=== PATIENT | female | born 1930 | race Hispanic/Latino ===

== ENCOUNTER 2017-10-27 16:56 | Observation (INO) | payer MEDICARE ==
[2017-10-27] MEDS ORDERED: MORPHINE IV ONE (18:35)
--- NOTE | 2017-10-27 18:54 | Emergency Department Report ---
ED Lower Extremity HPI - General Chief Complaint: Extremity Problem,Nontraumatic Stated Complaint: RT LEG PAIN/NOT ABLE TO URINE Time Seen by Provider: 10/27/17 17:44 Source: EMS Mode of arrival: Stretcher Limitations: Physical Limitation - History of Present Illness Initial Comments: Hematological the patient injured her right lower extremity and was sent to rehabilitation. Patient was just recently discharged from rehabilitation and the son was trying to help her sit and she slid onto the floor. She is unsure whether her right leg got trapped under her. However is complaining of pain in the knee and in the right leg. This incident happened yesterday. Patient called Dr. Lacy and was advised to come into the ER to have a vascular evaluation the patient. Patient is also complaining of intermittent chest pain on the left side mild to moderate intensity and nonradiating with no aggravating or relieving factor. Complaint: knee injury, leg injury -: Gradual Injury: Leg: Right, Knee: Right, Ankle: Right Type of Injury: other (last night patient was sitting down and slid onto the floor) Place: home Severity: moderate Improves With: rest Worsens With: movement Context: other (slid onto the floor) Associated Symptoms: unable to bear weight - Related Data Allergies Allergy/AdvReac Type Severity Reaction Status Date / Time meperidine [From Demerol] Allergy Shortness Verified 10/27/17 21:30 of Breath ED Review of Systems ROS: Stated complaint: RT LEG PAIN/NOT ABLE TO URINE Other details as noted in HPI Comment: All other systems reviewed and negative ED Past Medical Hx - Past Medical History Previous Medical History?: Yes Hx Hypertension: Yes Hx Diabetes: Yes Hx of Cancer: Yes (Skin) Hx Arthritis: Yes Hx COPD: Yes Additional medical history: Fibromyalgia, Neuropathy, Osteoporosis, CAD - Surgical History Past Surgical History?: Yes Hx Cholecystectomy: Yes Additional Surgical History: Back surgery, Open Heart, Hysterectomy - Social History Smoking Status: Former Smoker ED Physical Exam - General Limitations: Physical Limitation General appearance: alert, in no apparent distress - Head Head exam: Present: atraumatic, normocephalic - Eye Eye exam: Present: normal appearance. Absent: PERRL - ENT ENT exam: Present: mucous membranes moist - Neck Neck exam: Present: normal inspection - Respiratory Respiratory exam: Present: normal lung sounds bilaterally. Absent: respiratory distress - Cardiovascular Cardiovascular Exam: Present: regular rate, normal rhythm. Absent: systolic murmur, diastolic murmur, rubs, gallop - GI/Abdominal GI/Abdominal exam: Present: soft, normal bowel sounds. Absent: tenderness - Rectal Rectal exam: Present: deferred - Extremities Exam Extremities exam: Present: normal inspection, tenderness (tenderness to palpation of the right knee and right leg.) - Back Exam Back exam: Present: normal inspection. Absent: tenderness - Neurological Exam Neurological exam: Present: alert, oriented X3 - Psychiatric Psychiatric exam: Present: normal affect, normal mood - Skin Skin exam: Present: warm, dry, intact, normal color. Absent: rash ED Course Vital Signs 10/27/17 10/27/17 10/27/17 17:50 18:00 18:04 Temperature 98.2 F Pulse Rate 85 85 Respiratory 20 16 Rate Blood Pressure 198/73 Blood Pressure [right ankle] Blood Pressure [right arm] O2 Sat by Pulse 97 96 Oximetry 10/27/17 10/27/17 10/27/17 18:30 19:00 19:30 Temperature Pulse Rate 79 85 84 Respiratory 10 L 19 17 Rate Blood Pressure 198/73 197/66 236/91 Blood Pressure [right ankle] Blood Pressure [right arm] O2 Sat by Pulse 99 95 97 Oximetry 10/27/17 10/27/17 10/27/17 19:35 20:00 20:30 Temperature Pulse Rate 81 83 Respiratory 19 16 Rate Blood Pressure 235/91 226/89 Blood Pressure 197/69 [right ankle] Blood Pressure 226/84 [right arm] O2 Sat by Pulse 98 99 Oximetry 10/27/17 10/27/17 21:00 21:30 Temperature Pulse Rate 82 85 Respiratory 12 18 Rate Blood Pressure 219/92 229/84 Blood Pressure [right ankle] Blood Pressure [right arm] O2 Sat by Pulse 99 98 Oximetry ED Lower Extremity MDM - Lab Data Result diagrams: 10/27/17 20:38 10/27/17 21:40 - EKG Data -: EKG Interpreted by Me EKG shows normal: sinus rhythm (normal), axis (normal), intervals (normal), QRS complexes (normal), ST-T waves (normal) Rate: normal (rate is 87. rbbb) - Radiology Data Radiology results: report reviewed - Medical Decision Making Patient has also been complaining of intermittent chest pain as such I'll admit her for chest pain rule out. The patient's ankle-brachial index is 0.9 on the right lower extremity. i Have given a prophylactic dose of Lovenox pending her doing a lower extremity Doppler ultrasound of the right lower extremity to rule out a DVT in the morning. Dr. Perales as accepted the patient for admission. Critical care attestation.: If time is entered above; I have spent that time in minutes in the direct care of this critically ill patient, excluding procedure time. ED Disposition Clinical Impression: Chest pain, Right leg pain Disposition: OP ADMIT IP TO THIS HOSP Is pt being admited?: Yes Does the pt Need Aspirin: No Condition: Stable Time of Disposition: 21:20
[2017-10-27 19:21] LABS: Alanine Aminotransferase 9 units/L (7-56); Albumin 3.1 g/dL (3.9-5); BUN/Creatinine Ratio 17; Blood Urea Nitrogen 12 mg/dL (7-17); Calcium 9.5 mg/dL (8.4-10.2); Hemolysis Index 8
--- NOTE | 2017-10-27 20:28 | XRay Report ---
FINAL REPORT EXAM: XR KNEE 3V RT HISTORY: knee pain in the right knee TECHNIQUE: AP, oblique and lateral portable views of the right knee PRIORS: None. FINDINGS: There has been previous impacted fractures involving the proximal shafts of both the tibia and fibula. There appears to be sclerosis around the fracture sites with hypertrophic bone growth suggesting attempted healing. The tibial fracture still has angulation directed anteriorly. The fibular fracture is fairly well aligned. There is a varus alignment of the knee joint. No acute fracture or dislocation is seen. The soft tissues demonstrate posterior vascular calcifications but no evidence for suprapatellar joint effusion. Joint spaces are maintained and bony mineralization is normal. IMPRESSION: Healing fractures of the proximal tibia and fibula.
--- NOTE | 2017-10-27 20:31 | XRay Report ---
FINAL REPORT EXAM: XR ANKLE 3+V RT HISTORY: ankle pain TECHNIQUE: AP, lateral, and oblique views of the right ankle PRIORS: None. FINDINGS: There is no evidence for acute fracture or dislocation. Mild soft tissue swelling around the ankle is seen. No radiopaque foreign bodies are seen. The ankle mortise is intact. Bony mineralization is osteopenic and joint spaces are maintained. There are spurs off the posterior and plantar aspects of the calcaneus is seen. IMPRESSION: No acute bony abnormality noted. Mild soft tissue swelling around the ankle is seen.
[2017-10-27] MEDS ORDERED: APRESOLINE IV ONE (20:34)
[2017-10-27 20:51] LABS: Basophils % (Auto) 0.5 % (0.0-1.8); Eosinophils # (Auto) 0.2 K/mm3 (0.0-0.4); Eosinophils % (Auto) 1.9 % (0.0-4.3); Hematocrit 37.6 % (30.3-42.9); Lymphocytes # (Auto) 3.1 K/mm3 (1.2-5.4); Lymphocytes % (Auto) 33.4 % (13.4-35.0); Mean Corpuscular HGB Conc 32 % (30-34); Mean Corpuscular Hemoglobin 27 pg (28-32); Mean Corpuscular Volume 84 fl (79-97); Monocytes # (Auto) 0.7 K/mm3 (0.0-0.8); Monocytes % (Auto) 8.1 % (0.0-7.3); Platelet Count 201 K/mm3 (140-440); Red Blood Count 4.46 M/mm3 (3.65-5.03); Red Cell Distribution Width 16.1 % (13.2-15.2)
[2017-10-27] MEDS ORDERED: LOVENOX SUB-Q ONE ×2 (21:14→22:02)
[2017-10-27] MEDS ORDERED: NITROSTAT SL PRN (21:16)
[2017-10-27] MEDS ORDERED: SODIUM CHLORIDE FLUSH SYRINGE 10 ML IV PRN (21:16)
--- NOTE | 2017-10-27 21:35 | History and Physical Report ---
History of Present Illness Date of examination: 10/27/17 Date of admission: 10/27/2017 Chief complaint: "I feel" Chest pain History of present illness: An 87 Y/O female who presented with c/o left sided chest pain, including post fall at home with right leg pain. Accompained by her family. Per pt, she fall down from the "aurora lift", and her right leg got twisted under her, and has severe pain and decreased morbility. No family at bedside during this encounter. Pt reports left sided chest pain, under the left breast, resolved at the time of my encounter, but usually 5/10, sharp and intermittent. Pt is on home Oxygen. Past History Past Medical History: acute [place], CAD, COPD, hypertension, hyperlipidemia, other ( falls) Past Surgical History: CABG, total knee replacement Social history: , lives with family, other (2 adult children this year. ) Family history: cancer, hypertension, stroke Medications and Allergies Allergies Allergy/AdvReac Type Severity Reaction Status Date / Time meperidine [From Demerol] Allergy Shortness Verified 10/27/17 21:30 of Breath Active Meds: Active Medications Amlodipine Besylate (Norvasc) 5 mg PO QDAY OLIVE Aspirin (Baby Aspirin) 324 mg PO DAILY OLIVE Atorvastatin Calcium (Lipitor) 40 mg PO QHS OLIVE Sodium Chloride (Nacl 0.45% 1000 Ml) 1,000 mls @ 65 mls/hr IV DIRECT OLIVE Nitroglycerin (Nitrostat) 0.4 mg SL Q5M PRN PRN Reason: Chest Pain Pantoprazole (Protonix) 40 mg PO QDAY OLIVE Sodium Chloride (Sodium Chloride Flush Syringe 10 Ml) 10 ml IV PRN PRN PRN Reason: LINE FLUSH Tramadol HCl (Ultram) 25 mg PO Q4H PRN PRN Reason: Pain, Moderate (4-6) Review of Systems Constitutional: weight gain, weakness Eyes: bilateral: irritation, itching Ears, nose, mouth and throat: no ear pain, no ear discharge, no nasal congestion , no nasal discharge, no dysphagia, no hoarseness Breasts: no change in shape, no swelling, no mass Cardiovascular: chest pain, edema, lightheadedness, leg edema Respiratory: cough with sputum, shortness of breath, dyspnea on exertion Gastrointestinal: no abdominal pain, no nausea, no vomiting, no diarrhea Genitourinary Female: no dysmenorrhea, no vaginal itching, no vaginal discharge Menstruation: postmenopausal Rectal: no incontinence, no itching, no hemorrhoids Musculoskeletal: shooting leg pain, redness of joints, muscle weakness, muscle cramps, limitation of motion Integumentary: no rash, no pruritis, no redness, no darkening of skin, no depigmentation Neurological: weakness, vertigo, balance difficulties Psychiatric: no memory loss, no sleep disturbances, no hypersomnia, no change in appetite, no difficulties concentrating Endocrine: no heat intolerance, no excessive thirst, no polydipsia, no proptosis , no deepening of the voice Hematologic/Lymphatic: no easy bruising, no easy bleeding, no lymphadenopathy, no lymphedema Allergic/Immunologic: no urticaria, no anaphylaxis, no angioedema Exam - Constitutional Vitals: Temp Pulse Resp BP Pulse Ox 98.2 F 85 19 197/69 95 10/27/17 18:04 10/27/17 19:00 10/27/17 19:00 10/27/17 19:35 10/27/17 19:00 General appearance: Present: no acute distress, obese - EENT Eyes: Present: PERRL, EOM intact ENT: hearing intact, clear oral mucosa - Neck Neck: Present: supple, normal ROM - Respiratory Respiratory: bilateral: CTA, negative: rhonchi - Cardiovascular Rhythm: regular Heart Sounds: Present: S1 & S2 - Extremities Extremities: pulses intact, pulses symmetrical, normal temperature Extremity abnormal: edema Peripheral Pulses: within normal limits - Abdominal General gastrointestinal: Present: soft, non-tender, normal bowel sounds Female genitourinary: Present: deferred - Rectal Rectal Exam: deferred - Integumentary Integumentary: Present: clear, warm, dry, erythema - Musculoskeletal Musculoskeletal: generalized weakness, other (right knee and leg tenderness) - Neurologic Neurologic: CNII-XII intact, moves all extremities - Allied Health Allied health notes reviewed: nursing Results - Labs CBC & Chem 7: 10/27/17 20:38 10/27/17 21:40 Labs: Laboratory Last Values WBC 9.2 K/mm3 (4.5-11.0) 10/27/17 20:38 RBC 4.46 M/mm3 (3.65-5.03) 10/27/17 20:38 Hgb 12.0 gm/dl (10.1-14.3) 10/27/17 20:38 Hct 37.6 % (30.3-42.9) 10/27/17 20:38 MCV 84 fl (79-97) 10/27/17 20:38 MCH 27 pg (28-32) L 10/27/17 20:38 MCHC 32 % (30-34) 10/27/17 20:38 RDW 16.1 % (13.2-15.2) H 10/27/17 20:38 Plt Count 201 K/mm3 (140-440) 10/27/17 20:38 Lymph % (Auto) 33.4 % (13.4-35.0) 10/27/17 20:38 Sherman % (Auto) 8.1 % (0.0-7.3) H 10/27/17 20:38 Eos % (Auto) 1.9 % (0.0-4.3) 10/27/17 20:38 Baso % (Auto) 0.5 % (0.0-1.8) 10/27/17 20:38 Lymph # 3.1 K/mm3 (1.2-5.4) 10/27/17 20:38 Sherman # 0.7 K/mm3 (0.0-0.8) 10/27/17 20:38 Eos # 0.2 K/mm3 (0.0-0.4) 10/27/17 20:38 Baso # 0.0 K/mm3 (0.0-0.1) 10/27/17 20:38 Seg Neutrophils % 56.1 % (40.0-70.0) 10/27/17 20:38 Seg Neutrophils # 5.2 K/mm3 (1.8-7.7) 10/27/17 20:38 D-Dimer 291.13 ng/mlDDU (0-234) H 10/27/17 18:47 Sodium 138 mmol/L (137-145) 10/27/17 18:47 Potassium 4.6 mmol/L (3.6-5.0) 10/27/17 18:47 Chloride 97.7 mmol/L (98-107) L 10/27/17 18:47 Carbon Dioxide 29 mmol/L (22-30) 10/27/17 18:47 Anion Gap 16 mmol/L 10/27/17 18:47 BUN 12 mg/dL (7-17) 10/27/17 18:47 Creatinine 0.7 mg/dL (0.7-1.2) 10/27/17 18:47 Estimated GFR > 60 ml/min 10/27/17 18:47 BUN/Creatinine Ratio 17 % 10/27/17 18:47 Glucose 189 mg/dL (65-100) H 10/27/17 18:47 Calcium 9.5 mg/dL (8.4-10.2) 10/27/17 18:47 Total Bilirubin 0.40 mg/dL (0.1-1.2) 10/27/17 18:47 AST 9 units/L (5-40) 10/27/17 18:47 ALT 9 units/L (7-56) 10/27/17 18:47 Alkaline Phosphatase 88 units/L (35-129) 10/27/17 18:47 Total Protein 6.2 g/dL (6.3-8.2) L 10/27/17 18:47 Albumin 3.1 g/dL (3.9-5) L 10/27/17 18:47 Albumin/Globulin Ratio 1.0 % 10/27/17 18:47 - Imaging and Cardiology Chest x-ray: report reviewed CT Scan - head: report reviewed Assessment and Plan Assessment and plan: Acute Chest pain Right Leg pain s/p fall Chronic Resp failure on home Oxygen Falls, multiple Morbid Obesity CAD s/p CABG Full code status HTN, essen, chronic Plan Admit inpt to tele 2D Echo Cardio consult Aspirin Lipitor Lipid panel Am labs fall precautions at all times PT to eval and treat dvt and GI ulcer prophylaxis Further pt mgt per hospital course More than 40 mins spent of which more than 50% was spent in pt counseling and coordination of care Advance Directives: Yes VTE prophylaxis?: Chemical Plan of care discussed with patient/family: Yes
[2017-10-27] MEDS ORDERED: NACL 0.45% 1000 ML 1,000 ML IV SCH (22:00)
[2017-10-27] MEDS ORDERED: APRESOLINE ONE (22:03)
[2017-10-27 22:20] LABS: BUN/Creatinine Ratio 16; Blood Urea Nitrogen 11 mg/dL (7-17); Calcium 9.4 mg/dL (8.4-10.2); Hemolysis Index 9
[2017-10-28] MEDS: ULTRAM PO PRN ×3 (00:47→12:31)
[2017-10-28] MEDS ORDERED: LEXISCAN IV ONE ×2 (08:12→08:16)
--- NOTE | 2017-10-28 09:12 | Consultation ---
History of Present Illness Consult reason: chest pain History of present illness: An 87 Y/O female who presented to the ED with c/o left sided chest pain, present under the left breast, 5/10 wihtout radiation. Chest pain was sharp and intermittent. It has now resolved. Patient experienced the chest pain when she fall down from the "[place] lift". Past History Past Medical History: acute [place], CAD, COPD, hypertension, hyperlipidemia, other ( falls) Past Surgical History: CABG, total knee replacement Social history: , lives with family, other (2 adult children this year. ) Family history: cancer, hypertension, stroke Medications and Allergies Allergies Allergy/AdvReac Type Severity Reaction Status Date / Time meperidine [From Demerol] Allergy Shortness Verified 10/27/17 21:30 of Breath Active Meds: Active Medications Amlodipine Besylate (Norvasc) 5 mg PO QDAY OLIVE Aspirin (Baby Aspirin) 324 mg PO DAILY OLIVE Atorvastatin Calcium (Lipitor) 40 mg PO QHS OLIVE Last Admin: 10/28/17 00:46 Dose: 40 mg Enoxaparin Sodium (Lovenox) 90 mg 1 mg/kg (90 mg) SUB-Q Q12HR OLIVE Sodium Chloride (Nacl 0.45% 1000 Ml) 1,000 mls @ 65 mls/hr IV DIRECT OLIVE Last Admin: 10/28/17 00:51 Dose: 65 mls/hr Nitroglycerin (Nitrostat) 0.4 mg SL Q5M PRN PRN Reason: Chest Pain Pantoprazole (Protonix) 40 mg PO QDAY OLIVE Sodium Chloride (Sodium Chloride Flush Syringe 10 Ml) 10 ml IV PRN PRN PRN Reason: LINE FLUSH Tramadol HCl (Ultram) 25 mg PO Q4H PRN PRN Reason: Pain, Moderate (4-6) Last Admin: 10/28/17 05:26 Dose: 25 mg Review of Systems All systems: negative Physical Examination Vital Signs Pulse Resp Pulse Ox 85 20 97 10/27/17 17:50 10/27/17 17:50 10/27/17 17:50 General appearance: no acute distress HEENT: Positive: PERRL, EOMI Neck: Positive: neck supple Cardiac: Positive: Reg Rate and Rhythm, S1/S2 Lungs: Positive: clear to auscultation Abdomen: Positive: Soft, Active Bowel Sounds Extremities: Present: normal Results 10/27/17 20:38 10/27/17 21:40 Cardiac Enzymes 10/27/17 Range/Units 18:47 AST 9 (5-40) units/L CBC 10/27/17 Range/Units 20:38 WBC 9.2 (4.5-11.0) K/mm3 RBC 4.46 (3.65-5.03) M/mm3 Hgb 12.0 (10.1-14.3) gm/dl Hct 37.6 (30.3-42.9) % Plt Count 201 (140-440) K/mm3 Lymph # 3.1 (1.2-5.4) K/mm3 Fisher # 0.7 (0.0-0.8) K/mm3 Eos # 0.2 (0.0-0.4) K/mm3 Baso # 0.0 (0.0-0.1) K/mm3 Comprehensive Metabolic Panel 10/27/17 10/27/17 Range/Units 18:47 21:40 Sodium 138 140 (137-145) mmol/L Potassium 4.6 4.4 (3.6-5.0) mmol/L Chloride 97.7 L 98.9 (98-107) mmol/L Carbon Dioxide 29 32 H (22-30) mmol/L BUN 12 11 (7-17) mg/dL Creatinine 0.7 0.7 (0.7-1.2) mg/dL Glucose 189 H 143 H (65-100) mg/dL Calcium 9.5 9.4 (8.4-10.2) mg/dL AST 9 (5-40) units/L ALT 9 (7-56) units/L Alkaline Phosphatase 88 (35-129) units/L Total Protein 6.2 L (6.3-8.2) g/dL Albumin 3.1 L (3.9-5) g/dL EKG interpretations - Telemetry EKG Rhythm: Sinus Rhythm Assessment and Plan Acute Chest pain - history of CAD s/p CABG. Current chest pain is dissimilar from previous chest pain at the time of CABG. Plan for stress test and echo today. Right Leg pain s/p fall - Patient has a history of multiple falls. management per primary Chronic Resp failure on home Oxygen CAD s/p CABG - currently chest pain free. Echo pending. BB, ASA, and high intensity statin HTN - maximize antihypertensive medications as blood pressure allows
[2017-10-28] MEDS ORDERED: NORVASC PO SCH (10:00)
[2017-10-28] MEDS ORDERED: BABY ASPIRIN PO SCH (10:00)
[2017-10-28] MEDS ORDERED: PROTONIX PO SCH (10:00)
--- NOTE | 2017-10-28 11:40 | Progress Note ---
Subjective Date of service: 10/28/17 Interval history: Preliminary Nuclear stress test results Stress test negative for stressed induced ischemia EF 48% low risk for significant ischemia Objective Vital Signs Temp Pulse Resp BP BP BP Pulse Ox 10/28/17 08:03 99.2 F 105 H 20 154/75 93 10/28/17 03:36 100.1 F H 122 H 20 155/67 92 10/27/17 23:30 98.9 F 101 H 20 185/74 95 10/27/17 22:30 86 16 231/80 10/27/17 22:00 84 15 231/80 99 10/27/17 21:30 85 18 229/84 98 10/27/17 21:00 82 12 219/92 99 10/27/17 20:30 83 16 226/89 99 10/27/17 20:00 81 19 235/91 98 10/27/17 19:35 197/69 226/84 10/27/17 19:30 84 17 236/91 97 10/27/17 19:00 85 19 197/66 95 10/27/17 18:30 79 10 L 198/73 99 10/27/17 18:04 98.2 F 10/27/17 18:00 85 16 198/73 96 10/27/17 17:50 85 20 97 - Physical Examination HEENT: Positive: PERRL, EOMI Neck: Positive: neck supple Abdomen: Positive: Soft, Active Bowel Sounds Extremities: Present: normal - Labs and Meds Cardiac Enzymes 10/27/17 Range/Units 18:47 AST 9 (5-40) units/L CBC 10/27/17 Range/Units 20:38 WBC 9.2 (4.5-11.0) K/mm3 RBC 4.46 (3.65-5.03) M/mm3 Hgb 12.0 (10.1-14.3) gm/dl Hct 37.6 (30.3-42.9) % Plt Count 201 (140-440) K/mm3 Lymph # 3.1 (1.2-5.4) K/mm3 Banner # 0.7 (0.0-0.8) K/mm3 Eos # 0.2 (0.0-0.4) K/mm3 Baso # 0.0 (0.0-0.1) K/mm3 Comprehensive Metabolic Panel 10/27/17 10/27/17 Range/Units 18:47 21:40 Sodium 138 140 (137-145) mmol/L Potassium 4.6 4.4 (3.6-5.0) mmol/L Chloride 97.7 L 98.9 (98-107) mmol/L Carbon Dioxide 29 32 H (22-30) mmol/L BUN 12 11 (7-17) mg/dL Creatinine 0.7 0.7 (0.7-1.2) mg/dL Glucose 189 H 143 H (65-100) mg/dL Calcium 9.5 9.4 (8.4-10.2) mg/dL AST 9 (5-40) units/L ALT 9 (7-56) units/L Alkaline Phosphatase 88 (35-129) units/L Total Protein 6.2 L (6.3-8.2) g/dL Albumin 3.1 L (3.9-5) g/dL
[2017-10-28] MEDS: BABY ASPIRIN PO SCH (12:30)
[2017-10-28] MEDS: NORVASC PO SCH (12:31)
[2017-10-28] MEDS: LOPRESSOR PO SCH ×2 (12:32→21:42)
[2017-10-28] MEDS: LOVENOX SUB-Q SCH ×2 (12:33→21:42)
--- NOTE | 2017-10-28 15:16 | Progress Note ---
Assessment and Plan Acute Chest pain Right Leg pain s/p fall with an old fracture management conservatively b/c multiple comorbid conditions Chronic Resp failure on home Oxygen Falls, multiple Morbid Obesity CAD s/p CABG Full code status HTN, essen, chronic ASA, NTG, BB, ACEI, Morphin Cardio consult Aspirin Lipitor Lipid panel fall precautions at all times PT to eval and treat dvt and GI ulcer prophylaxis Am labs Subjective Date of service: 10/28/17 Principal diagnosis: chest pain Interval history: Cheat pain is better. Having painin the right leg where she had an old fracture that was managed conservatively. Denies any shortness of breath. Objective - Constitutional Vitals: Vital Signs - 12hr 10/28/17 10/28/17 10/28/17 03:36 08:03 10:13 Temperature 100.1 F H 99.2 F Pulse Rate 122 H 105 H 94 H Respiratory 20 20 Rate Blood Pressure 155/67 154/75 185/89 O2 Sat by Pulse 92 93 Oximetry 10/28/17 10/28/17 10/28/17 10:15 10:16 10:17 Temperature Pulse Rate 103 H 110 H 105 H Respiratory Rate Blood Pressure 181/73 151/69 168/67 O2 Sat by Pulse Oximetry 10/28/17 10/28/17 10/28/17 10:18 10:19 10:20 Temperature Pulse Rate 103 H 106 H 105 H Respiratory Rate Blood Pressure 168/67 162/71 165/68 O2 Sat by Pulse Oximetry 10/28/17 10/28/17 12:31 12:32 Temperature Pulse Rate Respiratory Rate Blood Pressure 154/73 154/73 O2 Sat by Pulse Oximetry General appearance: Present: no acute distress, well-nourished - EENT Eyes: PERRL, EOM intact Ears: bilateral: normal - Neck Neck: supple, normal ROM - Respiratory Respiratory effort: normal Respiratory: bilateral: CTA - Cardiovascular Rhythm: regular Heart Sounds: Present: S1 & S2. Absent: gallop, rub Extremities: pulses intact, No edema, normal color, Full ROM - Gastrointestinal General gastrointestinal: Present: soft, non-tender - Integumentary Integumentary: clear, warm, dry - Musculoskeletal Musculoskeletal: 1, strength equal bilaterally - Neurologic Neurologic: moves all extremities - Psychiatric Psychiatric: memory intact, appropriate mood/affect, intact judgment & insight - Labs CBC & Chem 7: 10/27/17 20:38 03/30/18 21:40 Labs: Abnormal lab results 10/27/17 10/27/17 10/27/17 Range/Units 18:47 18:47 20:38 MCH 27 L (28-32) pg RDW 16.1 H (13.2-15.2) % Weld % (Auto) 8.1 H (0.0-7.3) % D-Dimer 291.13 H (0-234) ng/mlDDU Chloride 97.7 L (98-107) mmol/L Carbon Dioxide (22-30) mmol/L Glucose 189 H (65-100) mg/dL POC Glucose (70-105) Total Protein 6.2 L (6.3-8.2) g/dL Albumin 3.1 L (3.9-5) g/dL 10/27/17 10/28/17 10/28/17 Range/Units 21:40 06:28 11:59 MCH (28-32) pg RDW (13.2-15.2) % Weld % (Auto) (0.0-7.3) % D-Dimer (0-234) ng/mlDDU Chloride (98-107) mmol/L Carbon Dioxide 32 H (22-30) mmol/L Glucose 143 H (65-100) mg/dL POC Glucose 318 H 306 H (70-105) Total Protein (6.3-8.2) g/dL Albumin (3.9-5) g/dL
[2017-10-28] MEDS: HumaLOG SUB-Q SCH ×2 (18:29→23:57)
[2017-10-28] MEDS: MORPHINE IV PRN (21:40)
[2017-10-29 06:42] LABS: Basophils % (Auto) 0.6 % (0.0-1.8); Eosinophils # (Auto) 0.2 K/mm3 (0.0-0.4); Eosinophils % (Auto) 2.3 % (0.0-4.3); Hematocrit 35.3 % (30.3-42.9); Hemoglobin 11.8 gm/dl (10.1-14.3); Lymphocytes # (Auto) 3.1 K/mm3 (1.2-5.4); Lymphocytes % (Auto) 48.2 % (13.4-35.0); Mean Corpuscular HGB Conc 33 % (30-34); Mean Corpuscular Hemoglobin 27 pg (28-32); Mean Corpuscular Volume 81 fl (79-97); Monocytes # (Auto) 0.6 K/mm3 (0.0-0.8); Monocytes % (Auto) 9.4 % (0.0-7.3); Platelet Count 214 K/mm3 (140-440); Red Blood Count 4.34 M/mm3 (3.65-5.03); Red Cell Distribution Width 15.9 % (13.2-15.2)
[2017-10-29 07:11] LABS: Alanine Aminotransferase 10 units/L (7-56); BUN/Creatinine Ratio 18; Blood Urea Nitrogen 11 mg/dL (7-17); Calcium 9.3 mg/dL (8.4-10.2); Hemolysis Index 16
[2017-10-29] MEDS: HumaLOG SUB-Q SCH ×4 (08:24→23:22)
--- NOTE | 2017-10-29 10:16 | Discharge Summary ---
Providers - Providers Date of Admission: 10/27/17 21:14 Date of discharge: 10/29/17 Attending physician: IVÁN MCKEON Cardiology Primary care physician: [employer]ER Hospitalization Reason for admission: chest pain Condition: Stable Pertinent studies: stress test that was negative Procedures: none Hospital course: An 87 Y/O female who presented with c/o left sided chest pain. Pt reports left sided chest pain, under the left breast, resolved at the time of my encounter, but usually 5/10, sharp and intermittent. Nonradiatory and no shortness of breath. Had previouly sustained fracturd of her right leg virgilio ws treeated conservatively as pt had many co-morbid conditions for which she was a high pt for surgery. Was therefore managed conservatively. On admission for her current chest pain, she was commence on oxygen, ASA, NTG and morphine. Cardiac enzymes were unremarkable. Pt was discharged to f/u with PCP. Pt who also has a history of had control of her blood sugar with SSI and consistent carbohydrate diet. she is therefore being discharged today to f/u with PCP with in 3-5 day. Disposition: - TO HOME OR SELFCARE Time spent for discharge: 33 mins Core Measure Documentation - Palliative Care Palliative Care/ Comfort Measures: Not Applicable - Core Measures Any of the following diagnoses?: none Exam - Constitutional Vitals: Temp Pulse Resp BP Pulse Ox 98.5 F 82 19 154/61 94 10/29/17 08:39 10/29/17 08:39 10/29/17 08:39 10/29/17 08:39 10/29/17 08:39 General appearance: Present: no acute distress, well-nourished - EENT Eyes: Present: PERRL - Neck Neck: Present: supple, normal ROM - Respiratory Respiratory effort: normal Respiratory: bilateral: CTA - Cardiovascular Heart Sounds: Present: S1 & S2. Absent: rub, click - Extremities Extremities: pulses symmetrical, No edema Peripheral Pulses: within normal limits - Abdominal General gastrointestinal: Present: soft, non-tender, non-distended, normal bowel sounds - Integumentary Integumentary: Present: clear, warm, dry - Musculoskeletal Musculoskeletal: gait normal, strength equal bilaterally - Psychiatric Psychiatric: appropriate mood/affect, intact judgment & insight - Neurologic Neurologic: CNII-XII intact, moves all extremities Plan Activity: advance as tolerated, fall precautions Weight Bearing Status: Weight Bear as Tolerated Diet: regular Follow up with: PRIMARY CARE, [Primary Care Provider] - 3-5 Days
[2017-10-29] MEDS: NORVASC PO SCH (11:14)
[2017-10-29] MEDS: LOPRESSOR PO SCH ×2 (11:14→22:31)
[2017-10-29] MEDS: BABY ASPIRIN PO SCH (11:14)
[2017-10-29] MEDS: LOVENOX SUB-Q SCH ×2 (11:15→22:32)
--- NOTE | 2017-10-29 16:51 | Event Note ---
Date: 10/29/17 Pt said she can no longer be taken care of adequately of home. Will require SNF placement
[2017-10-29] MEDS: MORPHINE IV PRN (17:49)
[2017-10-30] MEDS: MORPHINE IV PRN ×3 (00:06→18:58)
[2017-10-30 06:39] LABS: Basophils % (Auto) 0.4 % (0.0-1.8); Eosinophils # (Auto) 0.1 K/mm3 (0.0-0.4); Eosinophils % (Auto) 2.3 % (0.0-4.3); Hematocrit 35.1 % (30.3-42.9); Hemoglobin 11.7 gm/dl (10.1-14.3); Lymphocytes # (Auto) 2.9 K/mm3 (1.2-5.4); Lymphocytes % (Auto) 43.6 % (13.4-35.0); Mean Corpuscular HGB Conc 34 % (30-34); Mean Corpuscular Hemoglobin 27 pg (28-32); Mean Corpuscular Volume 81 fl (79-97); Monocytes # (Auto) 0.7 K/mm3 (0.0-0.8); Monocytes % (Auto) 11.2 % (0.0-7.3); Platelet Count 203 K/mm3 (140-440); Red Blood Count 4.33 M/mm3 (3.65-5.03); Red Cell Distribution Width 15.9 % (13.2-15.2)
[2017-10-30 07:00] LABS: Alanine Aminotransferase 9 units/L (7-56); BUN/Creatinine Ratio 17; Blood Urea Nitrogen 10 mg/dL (7-17); Calcium 9.1 mg/dL (8.4-10.2); Hemolysis Index 10
[2017-10-30] MEDS: HumaLOG SUB-Q SCH ×4 (09:04→22:55)
[2017-10-30] MEDS: NORVASC PO SCH (11:50)
[2017-10-30] MEDS: LOPRESSOR PO SCH ×2 (11:51→22:55)
[2017-10-30] MEDS: BABY ASPIRIN PO SCH (11:52)
[2017-10-30] MEDS: LOVENOX SUB-Q SCH ×2 (11:53→22:55)
--- NOTE | 2017-10-30 14:36 | Progress Note ---
Assessment and Plan Assessment and plan: Chest pain, rule out ACS -serial troponin levels normal -Nuclear stress test done, but report pending Physical deconditioning with recurrent falls. -PT following. Right leg pain -venous ultrasound report pending Chronic Resp failure with hypoxia on home Oxygen -stable HTN, essen, chronic -Blood pressure uncontrolled, meds adjusted Disposition: awaiting SNF placement History Interval history: Patient is a 87-year-old female admitted for chest pain. She does complain of a right leg pain. Hospitalist Physical - Constitutional Vitals: Temp Pulse Resp BP Pulse Ox 97.9 F 72 20 171/65 98 10/30/17 08:21 10/30/17 11:51 10/30/17 08:21 10/30/17 11:51 10/30/17 08:21 General appearance: Present: no acute distress, well-nourished - EENT Eyes: Present: PERRL, EOM intact - Neck Neck: Present: supple - Respiratory Respiratory effort: normal Respiratory: bilateral: CTA - Cardiovascular Rhythm: regular Heart Sounds: Present: S1 & S2 - Extremities Extremities: No edema - Abdominal General gastrointestinal: soft, non-tender, normal bowel sounds - Neurologic Neurologic: CNII-XII intact Results - Labs CBC & Chem 7: 10/30/17 05:35 10/30/17 05:35 Labs: Laboratory Last Values WBC 6.6 K/mm3 (4.5-11.0) 10/30/17 05:35 RBC 4.33 M/mm3 (3.65-5.03) 10/30/17 05:35 Hgb 11.7 gm/dl (10.1-14.3) 10/30/17 05:35 Hct 35.1 % (30.3-42.9) 10/30/17 05:35 MCV 81 fl (79-97) 10/30/17 05:35 MCH 27 pg (28-32) L 10/30/17 05:35 MCHC 34 % (30-34) 10/30/17 05:35 RDW 15.9 % (13.2-15.2) H 10/30/17 05:35 Plt Count 203 K/mm3 (140-440) 10/30/17 05:35 Lymph % (Auto) 43.6 % (13.4-35.0) H 10/30/17 05:35 [place] % (Auto) 11.2 % (0.0-7.3) H 10/30/17 05:35 Eos % (Auto) 2.3 % (0.0-4.3) 10/30/17 05:35 Baso % (Auto) 0.4 % (0.0-1.8) 10/30/17 05:35 Lymph # 2.9 K/mm3 (1.2-5.4) 10/30/17 05:35 [place] # 0.7 K/mm3 (0.0-0.8) 10/30/17 05:35 Eos # 0.1 K/mm3 (0.0-0.4) 10/30/17 05:35 Baso # 0.0 K/mm3 (0.0-0.1) 10/30/17 05:35 Seg Neutrophils % 42.5 % (40.0-70.0) 10/30/17 05:35 Seg Neutrophils # 2.8 K/mm3 (1.8-7.7) 10/30/17 05:35 D-Dimer 291.13 ng/mlDDU (0-234) H 10/27/17 18:47 Sodium 142 mmol/L (137-145) 10/30/17 05:35 Potassium 3.7 mmol/L (3.6-5.0) 10/30/17 05:35 Chloride 100.7 mmol/L (98-107) 10/30/17 05:35 Carbon Dioxide 29 mmol/L (22-30) 10/30/17 05:35 Anion Gap 16 mmol/L 10/30/17 05:35 BUN 10 mg/dL (7-17) 10/30/17 05:35 Creatinine 0.6 mg/dL (0.7-1.2) L 10/30/17 05:35 Estimated GFR > 60 ml/min 10/30/17 05:35 BUN/Creatinine Ratio 17 % 10/30/17 05:35 Glucose 178 mg/dL (65-100) H 10/30/17 05:35 POC Glucose 278 (70-105) H 10/30/17 12:06 Calcium 9.1 mg/dL (8.4-10.2) 10/30/17 05:35 Total Bilirubin 0.30 mg/dL (0.1-1.2) 10/30/17 05:35 AST 10 units/L (5-40) 10/30/17 05:35 ALT 9 units/L (7-56) 10/30/17 05:35 Alkaline Phosphatase 73 units/L (35-129) 10/30/17 05:35 Troponin T < 0.010 ng/mL (0.00-0.029) 10/28/17 00:30 Total Protein 5.8 g/dL (6.3-8.2) L 10/30/17 05:35 Albumin 3.0 g/dL (3.9-5) L 10/30/17 05:35 Albumin/Globulin Ratio 1.1 % 10/30/17 05:35
[2017-10-30] MEDS: APRESOLINE PO SCH ×2 (16:35→22:55)
[2017-10-31] MEDS: MORPHINE IV PRN (03:29)
[2017-10-31] MEDS: APRESOLINE PO SCH (06:55)
[2017-10-31 07:03] LABS: Alanine Aminotransferase 12 units/L (7-56); Albumin 3.2 g/dL (3.9-5); BUN/Creatinine Ratio 12; Blood Urea Nitrogen 7 mg/dL (7-17); Hemolysis Index 13
--- NOTE | 2017-10-31 07:38 | Progress Note ---
Assessment and Plan Acute Chest pain Right Leg pain s/p fall with an old fracture management conservatively b/c multiple comorbid conditions Chronic Resp failure on home Oxygen Falls, multiple Morbid Obesity CAD s/p CABG Full code status HTN, essen, chronic Stress test was negative. ASA, NTG, BB, ACEI, Morphin Lipitor Lipid panel fall precautions at all times PT to eval and treat dvt and GI ulcer prophylaxis Disposition: D/ischarged home today as pt cannot afford SNF D/c summary already completed on 10/29/17 Subjective Date of service: 10/31/17 Principal diagnosis: chest pain Interval history: Cheat pain is better. Having pain the right leg where she had an old fracture that was managed conservatively. Denies any shortness of breath. Objective - Constitutional Vitals: Vital Signs - 12hr 10/30/17 10/30/17 10/31/17 22:00 22:55 01:29 Temperature 98.5 F Pulse Rate 80 82 Respiratory 16 20 Rate Blood Pressure 153/64 Blood Pressure 168/71 [right arm] O2 Sat by Pulse 96 Oximetry General appearance: Present: no acute distress, well-nourished - EENT Eyes: PERRL, EOM intact Ears: bilateral: normal - Neck Neck: supple, normal ROM - Respiratory Respiratory effort: normal Respiratory: bilateral: CTA - Cardiovascular Rhythm: regular Heart Sounds: Present: S1 & S2. Absent: gallop, rub Extremities: pulses intact, No edema, normal color, Full ROM - Gastrointestinal General gastrointestinal: Present: soft, non-tender, non-distended, normal bowel sounds - Genitourinary Female genitourinary: normal - Integumentary Integumentary: clear, warm, dry - Musculoskeletal Musculoskeletal: 1, strength equal bilaterally - Neurologic Neurologic: moves all extremities - Psychiatric Psychiatric: memory intact, appropriate mood/affect, intact judgment & insight - Labs CBC & Chem 7: 10/30/17 05:35 10/31/17 05:45 Labs: Abnormal lab results 10/30/17 10/30/17 10/30/17 Range/Units 12:06 16:38 22:14 Creatinine (0.7-1.2) mg/dL Glucose (65-100) mg/dL POC Glucose 278 H 294 H 284 H (70-105) Total Protein (6.3-8.2) g/dL Albumin (3.9-5) g/dL 10/31/17 10/31/17 Range/Units 05:45 05:56 Creatinine 0.6 L (0.7-1.2) mg/dL Glucose 207 H (65-100) mg/dL POC Glucose 194 H (70-105) Total Protein 6.1 L (6.3-8.2) g/dL Albumin 3.2 L (3.9-5) g/dL
[2017-10-31] MEDS: HumaLOG SUB-Q SCH ×2 (08:54→12:30)
[2017-10-31] MEDS: NORVASC PO SCH (10:32)
[2017-10-31] MEDS: BABY ASPIRIN PO SCH (10:32)
[2017-10-31] MEDS: LOPRESSOR PO SCH (10:33)
[2017-10-31] MEDS: LOVENOX SUB-Q SCH (10:33)
[2017-10-31] MEDS ORDERED: NORCO 5/325 PO PRN (10:39)
[2017-10-31 12:50] VITALS: BP 166/60
--- NOTE | 2017-11-01 22:03 | Treadmill Report ---
THALLIUM STRESS TEST LEFT VENTRICULAR: Left ventricular chamber size is within normal. Perfusion study demonstrates a small fixed basal inferior defect of uncertain significance. There is no reversible defect identified. Gated analysis demonstrates well preserved left ventricular systolic function, ejection fraction was 56%. CONCLUSION: Small fixed basal inferior defect, for uncertain significance, possibly diaphragmatic attenuation artifact. There is no reversible ischemia demonstrated in the study. Clinical correlation is recommended. [facility]# [id number] [place]/NTS
== END 2017-10-31 14:05 | disposition home or self-care (01) ==
LOC: ED 16:56 → 3A 21:14
PROVIDERS: ADMIT Family Medicine; ATTEND Family Medicine
DX: R07.89 Other chest pain (principal); I25.10 Atherosclerotic heart disease of native coronary artery without angina pectoris; J44.9 Chronic obstructive pulmonary disease, unspecified; E78.5 Hyperlipidemia, unspecified; I10 Essential (primary) hypertension; E66.01 Morbid (severe) obesity due to excess calories; M79.604 Pain in right leg; J96.11 Chronic respiratory failure with hypoxia; M19.90 Unspecified osteoarthritis, unspecified site; E11.40 Type 2 diabetes mellitus with diabetic neuropathy, unspecified; M81.0 Age-related osteoporosis without current pathological fracture; Z87.891 Personal history of nicotine dependence; W19.XXXA Unspecified fall, initial encounter; Z85.828 Personal history of other malignant neoplasm of skin; Z68.38 Body mass index [BMI] 38.0-38.9, adult; Z91.81 History of falling; Z95.1 Presence of aortocoronary bypass graft; Z99.81 Dependence on supplemental oxygen; Z82.49 Family history of ischemic heart disease and other diseases of the circulatory system; R29.6 Repeated falls
CPT/HCPCS: 36415; 73562; 73610; 78452; 80048; 80053; 82962; 84484; 85025; 85379; 93005; 93010; 93017; 93306; 93970; 96361; 96372; 96374; 96375; 96376; 97110; 97162; 97165; 97530; 99285; A9270; A9502; G0378; G8978; G8979; G8987; G8988; J0360; J1650; J2270; J2785; J1815

== ENCOUNTER 2018-04-09 13:06 | Emergency (ER) | payer MEDICARE ==
[2018-04-09] MEDS ORDERED: SUBLIMAZE IV ONE (14:26)
--- NOTE | 2018-04-09 14:27 | Emergency Department Report ---
ED General Adult HPI - General Chief complaint: Fall Stated complaint: LOW BACK PAIN Time Seen by Provider: 04/09/18 14:16 Source: patient, EMS (ems notes not available at time of chart dictation) Mode of arrival: Stretcher Limitations: Physical Limitation - History of Present Illness Initial comments: This is an 87-year-old female who is not known to this provider previously, has a past medical history of chronic pain, COPD, neuropathy, fibromyalgia, osteoporosis, heart disease, possible high cholesterol The patient is brought to the hospital by EMS. Patient reports that she slid/ fell out of bed yesterday. She thinks she hit her head. She is not certain. Since the fall she is been unable to walk. She does not have focal extremity weakness or numbness. She has chronic neck pain and chronic back pain. She has bilateral hip pain, and she is not sure if it's worse than before. -: Sudden Location: neck, back, right, lower extremity Radiation: non-radiation Quality: aching Consistency: intermittent Improves with: rest Worsens with: movement Associated Symptoms: cough (chronic), headaches, loss of appetite, malaise, shortness of breath (chronic), weakness (chronic). denies: confusion, chest pain, diaphoresis, fever/chills, nausea/vomiting, syncope - Related Data Previous Rx's Medication Instructions Recorded Last Taken Type Aspirin [Aspirin BABY CHEW TAB] 81 mg PO QDAY tab.chew 10/29/17 Unknown Rx Lispro Insulin [Humalog] 0 unit SUB-Q ACHS units 10/29/17 Unknown Rx Metoprolol [Lopressor TAB] 12.5 mg PO BID tablet 10/29/17 Unknown Rx amLODIPine [Norvasc] 10 mg PO QDAY tablet 10/29/17 Unknown Rx Allergies Allergy/AdvReac Type Severity Reaction Status Date / Time meperidine [From Demerol] Allergy Shortness Verified 10/27/17 21:30 of Breath ED Review of Systems ROS: Stated complaint: LOW BACK PAIN Other details as noted in HPI Comment: All other systems reviewed and negative ED Past Medical Hx - Past Medical History Previous Medical History?: Yes Hx Hypertension: Yes Hx Diabetes: Yes Hx Arthritis: Yes Hx COPD: Yes Additional medical history: Fibromyalgia, Neuropathy, Osteoporosis, CAD - Surgical History Past Surgical History?: Yes Hx Cholecystectomy: Yes Additional Surgical History: Back surgery, Open Heart, Hysterectomy - Social History Smoking Status: Former Smoker Substance Use Type: None - Medications Home Medications: Home Medications Medication Instructions Recorded Confirmed Last Taken Type Aspirin [Aspirin BABY CHEW TAB] 81 mg PO QDAY tab.chew 10/29/17 Unknown Rx Lispro Insulin [Humalog] 0 unit SUB-Q ACHS units 10/29/17 Unknown Rx Metoprolol [Lopressor TAB] 12.5 mg PO BID tablet 10/29/17 Unknown Rx amLODIPine [Norvasc] 10 mg PO QDAY tablet 10/29/17 Unknown Rx ED Physical Exam - General Limitations: Physical Limitation General appearance: alert, in no apparent distress - Head Head exam: Present: atraumatic, normocephalic - Eye Eye exam: Present: normal appearance - ENT ENT exam: Present: normal exam, normal orophraynx, mucous membranes moist, normal external ear exam - Neck Neck exam: Present: normal inspection, tenderness, full ROM - Respiratory Respiratory exam: Present: normal lung sounds bilaterally. Absent: respiratory distress - Cardiovascular Cardiovascular Exam: Present: normal rhythm, normal heart sounds. Absent: systolic murmur, diastolic murmur, rubs, gallop - GI/Abdominal GI/Abdominal exam: Present: soft, normal bowel sounds. Absent: distended, tenderness, guarding, rebound, rigid, pulsatile mass - Extremities Exam Extremities exam: Present: other (bilateral hip tenderness. The right lower extremity is shortened and externally rotated.). Absent: normal inspection, full ROM, calf tenderness - Back Exam Back exam: Present: normal inspection, tenderness, vertebral tenderness (there is midline cervical spine tenderness. There is midline lumbar spine tenderness. ). Absent: CVA tenderness (R), CVA tenderness (L) - Neurological Exam Neurological exam: Present: alert, oriented X3, CN II-XII intact, other ( Extraocular movements intact. Tongue midline. No facial droop. Facial sensation intact to light touch in the V1, V2, V3 distribution bilaterally. 5 and 5 strength in 4 extremities.. Sensation is intact to light touch in 4 extremities.). Absent: motor sensory deficit - Psychiatric Psychiatric exam: Present: anxious - Skin Skin exam: Present: warm, ecchymosis, other (chronic discoloration noted to the bilateral lower extremities.) ED Course Vital Signs 04/09/18 14:03 Temperature 98.6 F Pulse Rate 58 L Respiratory 14 Rate Blood Pressure 142/47 O2 Sat by Pulse 98 Oximetry - Reevaluation(s) Reevaluation #1: 04/09/18 15:47 Differential diagnosis, including but not limited to: Fracture, dislocation, debility, urinary tract infection, intracranial injury, spinal injury Assessment and plan: Elderly patient status post fall with right lower extremity that is shortened and externally rotated. Motor and sensory exam are appropriate and has a GCS of 15. Suspect femur versus hip fracture. Pain medication ordered, CT scan of the brain, cervical spine, lumbar spine ordered, plain films of the right lower extremity ordered. Patient will be admitted to the hospital once initial diagnostics have resulted. Reevaluation #2: 04/09/18 17:28 CT scan of the brain, cervical spine, lumbar spine negative. The abdomen is pending. Urinalysis pending. Laboratory studies reviewed and are appreciated. Reevaluation #3: 04/09/18 19:24 X-rays do not show fracture or dislocation that are acute. Apparently, the patient has chronic right-sided proximal femur fracture, hence her external anatomy. A noncontrast Combs pelvis CT also did not demonstrate fracture the patient has been resting comfortably in the ER for hours without clinical decompensation and is eating quite comfortably. Patient able to walk with a 2 person assist. As per verbal report from the nurse who received information from the patient's son, patient has poor baseline ambulatory status and has a walker at home. There is no compelling medical reason to admit the patient to the hospital at this time, I have ordered a case management and physical therapy consult, and patient can reassess at home for poor baseline ambulatory status. ED Medical Decision Making - Lab Data Result diagrams: 04/09/18 15:50 04/09/18 15:50 Critical care attestation.: If time is entered above; I have spent that time in minutes in the direct care of this critically ill patient, excluding procedure time. ED Disposition Clinical Impression: Fall Disposition: DC-01 TO HOME OR SELFCARE Is pt being admited?: No Does the pt Need Aspirin: No Condition: Good Additional Instructions: Patient should continue current outpatient medications. Follow-up with her primary care doctor within the next week. An outpatient physical therapy in case management consult have been ordered, patient should receive a home evaluation for home physical therapy and possible rehabilitation. The patient does not receive phone call for the services within the next 2 days, please contact her primary care doctor or contact the case management department at this hospital to follow-up. Please return to the ER right away with pain, worsened pain, migration of pain, projectile vomiting, change in mental status, confusion, inability to tolerate liquids. Referrals: IVONNE MURPHY MD [Staff Physician] - 3-5 Days DIANE SAHNI MD [Staff Physician] - 3-5 Days
--- NOTE | 2018-04-09 15:50 | Cat Scan Report ---
CT HEAD WITHOUT CONTRAST: HISTORY: Headache, head injury. TECHNIQUE: Sequential CT images without contrast. FINDINGS: Images obtained show bilateral prominence of the sulci and ventricles. There are no abnormal intra- or extra-axial blood or fluid collections. There are no focal masses or evidence of mass effect. The santiago white matter differentiation appears within normal limits. Regions of periventricular decreased attenuation are consistent with microangiopathic ischemic disease. The posterior fossa structures including the fourth ventricle, cerebellum, and brainstem appear normal. IMPRESSION: Evidence of atrophy and microangiopathic ischemic disease. No acute intracranial process noted.
--- NOTE | 2018-04-09 15:51 | Cat Scan Report ---
CT SCAN OF THE CERVICAL SPINE: HISTORY: Neck pain, injury. TECHNIQUE: Contiguous 1.25 mm axial images of the cervical spine were obtained. Sagittal and coronal reformatted images. FINDINGS: There is normal alignment of the cervical spine. The body, pedicles and posterior ligaments appear normal. No evidence of fracture or subluxation is seen. The spinal canal appears normal. The prevertebral soft tissues appear normal. IMPRESSION: Unremarkable CT of the cervical spine. No acute process is noted.
--- NOTE | 2018-04-09 15:53 | Cat Scan Report ---
CT SCAN OF THE lumbar SPINE: HISTORY: Back pain, fall. TECHNIQUE: Contiguous 1.25 mm axial images of the lumbar spine were obtained. Sagittal and coronal reformatted images. FINDINGS: Osteopenia is evident. There is normal alignment of the lumbar spine. The body, pedicles and posterior ligaments are intact. Moderate multilevel degenerative disc disease and facet arthropathy are identified. Central canal narrowing is suspected at L3-4 and L4-5. No evidence of fracture or subluxation is seen. The spinal canal appears normal. The prevertebral soft tissues appear normal. IMPRESSION: No acute process is noted. Osteopenia. Lumbar spondylosis as described.
[2018-04-09 16:08] LABS: Hemoglobin 12.3 gm/dl (10.1-14.3); Mean Corpuscular HGB Conc 32 % (30-34); Mean Corpuscular Hemoglobin 26 pg (28-32); Mean Corpuscular Volume 81 fl (79-97); Platelet Count 250 K/mm3 (140-440); Red Blood Count 4.67 M/mm3 (3.65-5.03); Red Cell Distribution Width 17.8 % (13.2-15.2)
[2018-04-09] MEDS ORDERED: KIONEX PO ONE (16:34)
[2018-04-09 17:46] LABS: Bilirubin,Urine NEG (Negative); Blood,Urine NEG (Negative); Color,Urine Straw (Yellow); Hyaline Casts,Urine 9 /LPF; Protein,Urine <15 mg/dL mg/dL (Negative); Urobilinogen,Urine < 2.0 mg/dL (<2.0)
--- NOTE | 2018-04-09 18:44 | XRay Report ---
FINAL REPORT EXAM: XR FEMUR 2+V RT HISTORY: fall right leg pain TECHNIQUE: Three views right femur Comparison: None FINDINGS: There is a chronic nonunion or incomplete union of the proximal tibia diametaphyseal is incompletely imaged. Bones are osteopenic. There is no fracture of the right femoral shaft identified. No subcapital fracture of the right femoral neck. IMPRESSION: Old fracture right proximal tibia. No definite fracture of the right femur.
--- NOTE | 2018-04-09 18:46 | XRay Report ---
FINAL REPORT EXAM: XR PELVIS 1-2V HISTORY: fall right leg pain TECHNIQUE: AP pelvis Comparison: CT pelvis same day FINDINGS: Global osteopenia. No definite fracture or dislocation. Bowel gas obscures the lateral sacral arches. Arterial calcification. No disruption of the bony pelvic ring. IMPRESSION: No acute fracture or dislocation.
--- NOTE | 2018-04-09 19:09 | Cat Scan Report ---
FINAL REPORT EXAM: CT PELVIS WO CON HISTORY: fall pain deformed right leg TECHNIQUE: Axial noncontrast CT images of the pelvis were performed. Multiplanar reformats are performed on the acquisition scanner. Total exam DLP 718.85 mGy-cm Comparison: Plain film earlier same day FINDINGS: Global osteopenia. Pubic symphyseal degenerative sclerosis. No fracture or subluxation bony pelvic ring or proximal imaged femurs. Degenerative disc disease L4/L5 and L5/S1. Heavily calcified distal aorta and iliac arteries. Calcified left lateral recess disc at L4/L5. Imaged bowel gas is unremarkable. Moderately distended urinary bladder. Surgically absent uterus. IMPRESSION: No acute fracture or dislocation bony pelvis or either femoral head or neck/imaged proximal femurs. Calcified left L4/L5 lateral recess disc. Discogenic disease L4/L5 and L5/S1.
[2018-04-09 19:45] VITALS: BP 159/71
[2018-04-09] MEDS ORDERED: TYLENOL PO ONE (23:08)
[2018-04-10] MEDS ORDERED: ULTRAM ONE (00:20)
--- NOTE | 2018-04-10 06:13 | Consultation ---
HISTORY OF PRESENT ILLNESS: This is an 88-year-old white female in room #26 Emergency Room. The patient was brought to [facility] at my request. The patient has a recent history of worsening gait problems, had fallen and broken her leg several months back at [facility], had been receiving outpatient therapy. Based on cardiac clearance, she cannot be cleared for surgical fixation of her right knee. Now, she has been nauseated, vomiting, not acting like herself, was brought in confused and disoriented. Labs are all pending at this point. I saw the patient briefly, spoke to her. She has equal tone in upper extremities. I do not think she is a stroke alert. Rest on my evaluation shows full ocular movements, good speech. Recognizes me, talks normally per my note knowledge of the patient. PLAN: Suspect hospitalist will admit the patient for alteration in mental status, encephalopathy and worsening problems in the right leg related to a fracture, rule out blood clot. She is a diabetic and has had prior history of multiple episodes of admission to [facility]. [facility]# [id number] BEBE/NTS
== END 2018-04-10 02:00 | disposition home or self-care (01) ==
LOC: ED 13:06
DX: M54.5 Low back pain (principal); I10 Essential (primary) hypertension; R10.2 Pelvic and perineal pain; M19.90 Unspecified osteoarthritis, unspecified site; J44.9 Chronic obstructive pulmonary disease, unspecified; E11.40 Type 2 diabetes mellitus with diabetic neuropathy, unspecified; M79.7 Fibromyalgia; Z79.82 Long term (current) use of aspirin; Z79.4 Long term (current) use of insulin; Z88.5 Allergy status to narcotic agent; Z90.49 Acquired absence of other specified parts of digestive tract; Z90.710 Acquired absence of both cervix and uterus; Z87.891 Personal history of nicotine dependence
CPT/HCPCS: 36415; 51702; 70450; 72125; 72131; 72170; 72192; 73552; 80048; 81001; 82550; 85027; 96374; 99285; J3010